=== PATIENT | female | born 1985 | race American Indian/Alaskan Native ===

== ENCOUNTER 2020-01-28 10:21 | Outpatient (CLI) | payer BC ==
[2020-01-28 12:50] LABS: Hematocrit 32.3 % (30.3-42.9); Hemoglobin 10.1 gm/dl (10.1-14.3); Mean Corpuscular HGB Conc 31 % (30-34); Mean Corpuscular Volume 86 fl (79-97); Platelet Count 204 K/mm3 (140-440); Red Blood Count 3.76 M/mm3 (3.65-5.03); Red Cell Distribution Width 17.5 % (13.2-15.2)
[2020-01-28 13:09] LABS: Alanine Aminotransferase 10 units/L (7-56); Uric Acid 7.2 mg/dL (3.5-7.6)
[2020-01-28 15:15] VITALS: BP 149/91
== END 2020-01-28 17:00 | disposition home or self-care (01) ==
LOC: TRG 10:21 → APU 10:22 → TRG 17:00
PROVIDERS: ATTEND Obstetrics & Gynecology
DX: O13.3 Gestational [pregnancy-induced] hypertension without significant proteinuria, third trimester (principal); Z3A.36 36 weeks gestation of pregnancy
CPT/HCPCS: 36415; 59025; 82565; 83615; 84450; 84460; 84550; 85027